=== PATIENT | male | born 1970 | race Caucasian/White ===

== ENCOUNTER 2017-03-15 10:03 | Outpatient (CLI) ==
[2013-11-22 11:01] VITALS: BMI 27.3
--- NOTE | 2017-03-15 13:49 | MRI ---
EXAM: MRI lumbar spine without IV contrast. DATE: 03/15/2017. HISTORY: Lumbar back pain with left-sided radiculopathy. TECHNIQUE: Sagittal and axial T1W and T2W sequences of the lumbar spine along with sagittal IR and c oronal T2W sequences were obtained using 1.2 Susana magnet. No IV contrast. COMPARISON: None. FINDINGS: There are five [id number] lumbar vertebra. There is no lumbar scoliosis. A 2.2 mm a nterior subluxation of S1 relative to L5 is noted. No other subluxation, acute fracture, osseous mal ignancy, or pars interarticularis defect is demonstrated. Lumbar vertebra are normal in height. Bon e marrow signal is normal. Chronic Schmorl's nodes are demonstrated at T11 and T12. Disc desiccatio n is seen at T11-12, T12-L1, and L5-S1. Minor T12-L1, minor L1-2, and moderate/marked L5-S1 disc spa ce narrowing is detected. No acute sacral fracture or stress reaction is revealed. SI joints are un remarkable. Conus medullaris terminates at L2. Visible spinal cord is normal. No retroperitoneal lymphadenopathy, paraspinal mass, or aortic aneurysm is detected. Paraspinal musc ulature is symmetric bilaterally. Visible portions of the liver, spleen, adrenal glands and kidneys are normal. No bowel obstruction or neoplasm is evident. Segmental analysis: T11-12: Normal. T12-L1: Normal. L1-2: Normal. L2-3: Normal, except for dorsal epidural fat causing minor narrowing of the thecal sac. L3-4: Normal, except for borderline prominent dorsal epidural fat. L4-5: Minimal posterior to foraminal disc bulge causes slight bilateral inferior foraminal encroachm ent. No central canal stenosis. L5-S1: Minor anterior subluxation of S1, small/moderate posterior to foraminal disc bulge and minor left facet arthropathy cause moderate right and mild left foraminal stenoses. Thecal sac is mildly n arrowed due to epidural fat. IMPRESSIONS: 1. Lumbar spine minor DDD and minor facet arthropathy. 2. Minor L2-3 and mild L5-S1 central canal stenoses. 3. L4-5 and L5-S1 foraminal stenose (ploo. right L5-S1). 4. Chronic, small Schmorl's nodes at T11 and T12.
== END 2017-03-15 10:04 | disposition home or self-care (01) ==
LOC: RAD 10:03
PROVIDERS: ATTEND Family Medicine
DX: M54.42 Lumbago with sciatica, left side (principal); G89.29 Other chronic pain

== ENCOUNTER 2017-07-17 10:23 | Outpatient (CLI) ==
[2013-11-22 11:01] VITALS: BMI 27.3
--- NOTE | 2017-07-17 10:54 | CT ---
Exam: CT abdomen pelvis without intravenous contrast. Comparison: None available. Reason for exam: Left lower quadrant pain. FINDINGS: No pleural effusion, or focal consolidation in the partially imaged lung bases. The liver, spleen, gallbladder, pancreas, and adrenal glands appear grossly unremarkable. No hydronephrosis, hydroureter, or nephrolithiasis in either kidney. No focal small bowel dilatation or transition point. The appendix appears grossly unremarkable. Inflammatory changes are seen in the descending colon, seen best on coronal images 36 - 45. The bladder appears grossly unremarkable. No suspicious appearing osteoblastic or osteolytic lesions. Degenerative disease is seen in the lumbosacral spine with intervertebral body disc space height narr owing. Impression: 1. Nonspecific inflammatory changes are seen adjacent to the descending colon. Imaging findings can be seen with colitis, diverticulitis, and inflammation of the mesenteric fat (panniculitis) adjacent to the descending colon. Follow-up imaging is recommended. 2. No other inflammatory changes are seen within the abdomen or pelvis.
== END 2017-07-17 10:24 | disposition home or self-care (01) ==
LOC: RAD 10:23
PROVIDERS: ATTEND Family Medicine
DX: R10.32 Left lower quadrant pain (principal)
CPT/HCPCS: 36415; 80053; 81001; 82150; 83690; 85025

== ENCOUNTER 2017-11-06 16:29 | Emergency (ER) ==
[2017-11-06 16:40] VITALS: BP 161/95; TEMP 97.1; BMI 31.1
--- NOTE | 2017-11-06 17:48 | ED.PDOC ---
General ED Provider: Dr. SAKINA PARK Chief Complaint: Abdominal Pain Stated Complaint: abdominal pain Time Seen by Physician: 16:40 (seen with the pt's nurse ) Mode of Arrival: Walk-In Information Source: Patient Primary Care Provider: ANGELINA CHACKO Nursing and Triage Documentation Reviewed and Agree: Yes Does patient meet sepsis criteria?: No If yes, has appropriate treatment been initiated?: No System Inflammatory Response Syndrome: Not Applicable Sepsis Protocol: For patient's 13 years and over: Temp is 96.8 and below OR 101 and greater Pulse >90 BPM Resp >20/minute Acutely Altered Mental Status Are patient's symptoms suggestive of a new infection, such as: -Pneumonia -Skin, Soft Tissue -Endocarditis -UTI -Bone, Joint Infection -Implantable Device -Acute Abdominal Infection -Wound Infection -Meningitis -Blood Stream Catheter Infection -Unknown GI Complaint Exam - Abdominal Pain Complaint/Exam Onset: Sudden Duration: 1 hr upon arrival mostly gone at onset was severe Symptoms Are: Still present (residual pain negative vomiting) Timing: Constant Initial Severity: Severe Current Severity: Mild Location of Pain: Epigastric Radiates To: Reports: Chest (lower chest) Character: Reports: Cramping (at onset but later was dull pain) Aggravating: Reports: None Alleviating: Reports: None Associated Signs and Symptoms: Denies: Diaphoresis, Fever, Cough, Chest pain, Dizziness, Back pain, Constipation, Blood in stool, Dysuria, Urinary frequency, Decreased urine output, Decreased appetite, Discharge, Nausea, Vomiting, Diarrhea, Decreased activity AAA Risk Factors: Reports: None Cardiac Risk Factors: Reports: None Testicular Torsion Risk Factors: Reports: None Surgical Obstruction Risk Factors: Reports: None Related Surgical History: Reports: None Abdominal Findings: Present: None Differential Diagnoses: Appendicitis, Bowel Obstruction, Constipation, Diverticulitis, Gastroenteritis, Hepatitis, Pancreatitis, Irritable Bowel Syndrome, Renal Colic, Ureteral Stone, GB Quality Indicators for Cardiac Chest Pain: EKG in 10min. Quality Indicator For Non-Traumatic Chest Pain/Syncope: EKG Performed Review of Systems - Review Of Systems Constitutional: Reports: No symptoms Eyes: Reports: No symptoms Ears, Nose, Mouth, Throat: Reports: No symptoms Respiratory: Reports: No symptoms Cardiac: Reports: No symptoms GI: Reports: Abdominal pain : Reports: No symptoms Musculoskeletal: Reports: No symptoms Skin: Reports: No symptoms Neurological: Reports: No symptoms Endocrine: Reports: No symptoms Hematologic/Lymphatic: Reports: No symptoms All Other Systems: Reviewed and Negative Past Medical History - Past Medical History Previously Healthy: Yes Endocrine: Reports: None Cardiovascular: Reports: None Respiratory: Reports: None Hematological: Reports: None Gastrointestinal: Reports: None Genitourinary: Reports: None Neuro/Psych: Reports: None Musculoskeletal: Reports: None Cancer: Reports: None - Surgical History General Surgical History: Reports: None - Family History Family History: Reports: None - Social History Smoking Status: Never smoker Hx Substance Use: No Alcohol Screening: Occasionally Physical Exam - Physical Exam Appearance: Well-appearing, No pain distress, Well-nourished Eyes: ELAINA, EOMI, Conjunctiva clear ENT: Ears normal, Nose normal, Oropharynx normal Respiratory: Airway patent, Breath sounds clear, Breath sounds equal, Respirations nonlabored Cardiovascular: RRR, Pulses normal, No rub, No murmur GI/: Soft, Nontender, No masses, Bowel sounds normal, No Organomegaly Musculoskeletal: Normal strength, ROM intact, No edema, No calf tenderness Skin: Warm, Dry, Normal color Neurological: Sensation intact, Motor intact, Reflexes intact, Cranial nerves intact, Alert, Oriented Psychiatric: Affect appropriate, Mood appropriate Interpretation - Radiology Interpretation Radiology Interpretation By: Radiologist Radiology Results: Positive (doctor derrickalex called me at about 5:45pm stated that his pain consistent mostly with entritis and less like early obstruction) Critical Care Note - Critical Care Note Total Time (mins): 0 Course - Course Hematology/Chemistry: 11/06/17 17:08 11/06/17 17:08 Orders, Labs, Meds: Lab Review 11/06/17 11/06/17 11/06/17 17:08 17:08 17:08 WBC 10.12 RBC 5.51 Hgb 16.2 Hct 44.6 MCV 80.9 MCH 29.4 MCHC 36.3 H RDW Coeff of Lino 13.2 Plt Count 305 Immature Gran % (Auto) 0.6 Neut % (Auto) 59.8 Lymph % (Auto) 24.8 Dorado % (Auto) 10.3 H Eos % (Auto) 3.9 Baso % (Auto) 0.6 Immature Gran # (Auto) 0.1 Neut # (Auto) 6.1 Lymph # (Auto) 2.5 Dorado # (Auto) 1.0 Eos # (Auto) 0.4 Baso # (Auto) 0.1 Sodium 138.1 Potassium 4.80 Chloride 100.4 Carbon Dioxide 30.3 H Anion Gap 12.20 BUN 13.6 Creatinine 1.04 Estimated GFR (MDRD) 77.00 BUN/Creatinine Ratio 13.07 Glucose 102.1 Calcium 9.51 Total Bilirubin 0.80 AST 61.7 H ALT 109.8 H Alkaline Phosphatase 85.6 Total Creatine Kinase 37.5 L Troponin I < 0.012 Total Protein 8.21 H Albumin 4.39 Globulin 3.82 Albumin/Globulin Ratio 1.14 Hepatitis A IgM Ab Negative Hep Bs Antigen Negative Hep B Core IgM Ab Negative Hep C Ab Signal/Cutoff < 0.1 Orders Category Date Time Status EKG-(ED ONLY) Stat CARDIO 11/06/17 16:57 Completed CBC W/ AUTO DIFF Stat LAB 11/06/17 17:08 Completed COMPREHENSIVE METABOLIC PANEL Stat LAB 11/06/17 17:08 Completed CREATINE KINASE Stat LAB 11/06/17 17:08 Completed HEPATITIS PANEL, ACUTE Stat LAB 11/06/17 17:08 Completed TROPONIN I Stat LAB 11/06/17 17:[address] ABDOMEN/PELVIS WO CONTRAST Stat RADS 11/06/17 16:57 Completed Vital Signs: Temp Pulse Resp BP Pulse Ox 11/06/17 16:30 97.1 F L 82 20 161/95 H 95 Departure - Departure Time of Disposition: 19:00 Disposition: HOME SELF-CARE Discharge Problem: Abdominal pain, Abnormal liver function tests Instructions: Abdominal Pain (ED) Condition: Good Pt referred to PMD for follow-up: Yes IPMP verified?: No Additional Instructions: Follow up with your PCP tomorrow. Please call the office in the morning YOU HAVE AN ABNORMAL LIVER FUNCTION TESTS. A HEPATITIS PANEL IS ORDERED PLEASE OBTAIN RESULTS THROUGH YOUR MD. Allergies/Adverse Reactions: Allergies No Known Allergies Allergy (Verified 11/06/17 16:37) Home Medications: Ambulatory Orders Lisinopril 20 mg PO BEDTIME 11/06/17 Disposition Discussed With: Patient, Family (discuused abnormal LFTS)
--- NOTE | 2017-11-06 17:48 | CT ---
EXAM: CT abdomen pelvis without contrast HISTORY: Pain, epigastric COMPARISON: 07/17/2017 TECHNIQUE: CT abdomen pelvis performed without intravenous contrast. Coronal and sagittal reformatt ed images obtained. FINDINGS: Mild bibasilar atelectasis. No free air. No acute abnormalities of the bones. Degenerat sb change in the spine. Heart normal in size. Evaluation organ parenchyma limited without contrast . Liver diffusely decreased attenuation. Gallbladder unremarkable. Pancreas unremarkable. Spleen unremarkable. Adrenals unremarkable. Kidneys unremarkable without hydronephrosis or nephrolithiasis . No calculi visualized in normal course of the ureters. Bladder unremarkable. Prostate normal in size. Small fat-containing right inguinal hernia. Aorta normal in caliber. No lymphadenopathy or a scites. Stomach unremarkable. Mild fluid distension of several loops loops small bowel with scatter ed fluid levels. Distal small bowel relatively decompressed without transition point identified. Fin dings favored to represent enteritis. Would be difficult to entirely exclude early or partial small b owel obstruction, though this is favored unlikely.. Increased submucosal fat deposition in portions o f the distal small bowel and colon. Appendix unremarkable. Small fat-containing periumbilical hernia . IMPRESSION: 1. Bowel gas pattern is nonspecific with mild fluid distension of several loops small bowel with sca ttered fluid levels. Distal small bowel relatively decompressed without transition point identified. Findings favored to represent enteritis. Would be difficult to entirely exclude early or partial sma ll bowel obstruction, though this is favored unlikely.. 2. Increased submucosal fat deposition in portions of the distal small bowel and colon, a finding be seen in sequela of remote infection or inflammation, such as inflammatory bowel disease. 3. Hepatic steatosis. Finding #[address] Connelly 5:42 p.m. 11/06/2017
== END 2017-11-06 18:55 | disposition home or self-care (01) ==
LOC: ED 16:29
DX: R10.13 Epigastric pain (principal); R94.5 Abnormal results of liver function studies
CPT/HCPCS: 36415; 80053; 80074; 82550; 84484; 85025; 93005; 93010; 99283